=== PATIENT | male | born 1960 | race Caucasian/White ===

== ENCOUNTER 2016-09-01 18:30 | Inpatient (IN) | payer MEDICARE, MEDICAID ==
[~2016-09-01] VITALS: Ht 177.8 cm; Wt 90.4 kg
--- NOTE | ~2016-09-01 | CON ---
PATIENT'S NAME: VARSHA PERDUE [facility] AGE: 55 Y [address] ROOM: [place] [address] LOCATION: GPCU ADMIT DATE: 09/01/2016 Consultation DISCHARGE DATE: FAMILY PHYSICIAN: PHYSICIAN, UNKNOWN ATTENDING PHYSICIAN: Alena Busch CHIEF COMPLAINT: Syncopal episode. REASON FOR CONSULTATION: Medical management. HISTORY OF PRESENT ILLNESS: This is a 55-year-old gentleman with a history of developmental delay, history of hypertrophic obstructive cardiomyopathy, hypertension, and sleep apnea, experienced a syncopal episode today, in which he described he blacked out and his coworkers took him to the emergency department in [place] and was later transferred here for further medical care. On my encounter, he is alert and oriented, very pleasant gentleman. He denied any chest pain, any shortness of breath, any palpitations, any headache, any dizziness, any trouble with the eyes, any abdominal pain, or any extremity swelling at this point. He told me that he just could remember that he just blacked out and do not remember much. He denied hitting any head or having any headache at this point. Further history was taken from the chart as well as other medical staff. REVIEW OF SYSTEMS: All other systems reviewed and were negative except what is mentioned in the HPI. PAST MEDICAL HISTORY: 1. History of hypertrophic cardiomyopathy, obstructive. 2. Hypertension. 3. Obesity. 4. Obstructive sleep apnea. 5. Developmental delays. MEDICATIONS: Please see MAR. ALLERGIES: NO KNOWN DRUG ALLERGIES. SOCIAL HISTORY: Never a smoker, no drinking. Very active in life, having working for the last 27 years. PATIENT'S NAME: VARSHA PERDUE [facility] AGE: 55 Y [address] ROOM: [place] [address] LOCATION: GPCU ADMIT DATE: 09/01/2016 Consultation DISCHARGE DATE: FAMILY PHYSICIAN: PHYSICIAN, UNKNOWN ATTENDING PHYSICIAN: Alena Busch FAMILY HISTORY: Family history is negative for any premature coronary artery disease. PHYSICAL EXAMINATION: VITAL SIGNS: Blood pressure 136/76, 51, 16, afebrile. GENERAL: No acute distress. Alert and oriented x3. HEENT: Head: Atraumatic and normocephalic. Eyes are nonicteric. No pallor. Oropharynx: Moist mucous membranes. NECK: No JVD or thyromegaly. CARDIOVASCULAR: S1 and S2. Systolic ejection murmur at the apex radiating to the axilla, 3/6. LUNGS: Clear to auscultation bilaterally. ABDOMEN: Soft, nontender, and nondistended. Bowel sounds are present. Large surgical scar omar noted. EXTREMITIES: No clubbing, cyanosis, or edema. NEUROLOGIC: Cranial nerves 2 through 12 intact. No motor or sensory deficit noted. PSYCH: Normal mood, affect, and speech. LABORATORY WORK: An EKG done at the [facility] [place] showed sinus bradycardia without any acute ST-T wave changes. We are going to obtain a basic lab work including magnesium. ASSESSMENT AND PLAN: 1. Syncopal episode. 2. Hypertrophic obstructive cardiomyopathy. 3. Obstructive sleep apnea. 4. Paroxysmal atrial fibrillation, on oral anticoagulation with Coumadin. PLAN: We are going to admit this patient to the telemetry under Cardiology Service. We will monitor his rhythm on the tele monitor. We will monitor labs. Discontinuing the Coumadin to lower the INR. Given his syncopal episode with hypertrophic obstructive cardiomyopathy, he is a candidate for AICD by Cardiology. We will restart the home medications. CPAP for obstructive sleep apnea. Thank you for allowing us in taking care of this patient, and we will follow along. KWESI THOMPSON MD PATIENT'S NAME: VARSHA PERDUE [facility] AGE: 55 Y [address] ROOM: [id number] [place], [place] [address] [facility] ADMIT DATE: 09/01/2016 Consultation DISCHARGE DATE: FAMILY PHYSICIAN: PHYSICIAN, UNKNOWN ATTENDING PHYSICIAN: Alena Busch /[id number] d: 09/01/162111 t: 09/03/16619, CONSULTATION REPORT
--- NOTE | ~2016-09-01 | HP ---
PATIENT'S NAME: VARSHA KERNS [facility] AGE: 55 Y [address] ROOM: [address] [address] LOCATION: GPCU ADMIT DATE: 09/01/2016 History & Physical DISCHARGE DATE: FAMILY PHYSICIAN: PHYSICIAN, UNKNOWN ATTENDING PHYSICIAN: Alena Busch DATE OF SERVICE: CHIEF COMPLAINT: Passed out. HISTORY OF PRESENT ILLNESS: Mr. Kerns is a pleasant 55-year-old male who follows with Dr. Busch as an outpatient. The patient stated that today while [facility] was at [facility] in [place] he suddenly passed out. The patient stated that he was unconscious for a brief time and when he woke up he did not know where he was. Subsequently, he was taken to [facility] and transferred here for further management in consultation with Dr. Busch. The patient denied any previous history of syncope. He has been having shortness of breath on exertion for the last two weeks and has not been able to keep up with his peers. No history of chest pain. No history of palpitations. Per previous medical records, the patient has had an echo in the past which showed moderate septal hypertrophy measuring 1.6 cm with systolic anterior motion of mitral valve and moderate mitral regurgitation. Velocity across the LVOT was 5.6 m/sec with Valsalva consistent with gradient of 127 mmHg. Resting gradient across LVOT was 99 mmHg. The patient also has moderate pulmonary hypertension. REVIEW OF SYSTEMS: The patient denied any recent change in vision. No history of nausea, vomiting, diarrhea, or constipation. No history of fever. No history of cough or expectoration. No history of chest pain. Review of other systems is essentially negative. PAST MEDICAL HISTORY: History of hypertrophic obstructive cardiomyopathy, hypertension, hyperlipidemia. The patient also has a history of developmental delay; paroxysmal atrial fibrillation, on Coumadin and dronedarone; history of gout, on allopurinol; sleep apnea; history of gastroesophageal reflux disease; and history of perforated bowel with colon resection in December 2012. The patient also has previous history of chest pain and had cardiac catheterization in 2010, but the report is not available. SOCIAL HISTORY: The patient is single. Nonsmoker, nonalcoholic. PATIENT'S NAME: VARSHA KERNS [facility] AGE: 55 Y [address] ROOM: [place] [address] LOCATION: GPCU ADMIT DATE: 09/01/2016 History & Physical DISCHARGE DATE: FAMILY PHYSICIAN: PHYSICIAN, UNKNOWN ATTENDING PHYSICIAN: Alena Busch FAMILY HISTORY: No family history of hypertrophic cardiomyopathy. The patient stated that his father left him when he was young and he does not know much about his father. CURRENT MEDICATIONS: 1. Warfarin. 2. Omeprazole 20 mg daily. 3. Fish oil. 4. Tylenol. 5. Allopurinol 100 mg daily. 6. Amlodipine 5 mg daily. 7. Calcium carbonate. 8. Dronedarone 400 mg b.i.d. 9. Ezetimibe 10 mg daily. 10. Metoprolol succinate 100 mg daily. PHYSICAL EXAMINATION: GENERAL: He is awake, alert, and oriented and in no distress. VITAL SIGNS: His pulse rate is 50 per minute, blood pressure is 157/82, respiratory rate is 16. HEENT: His head is atraumatic and normocephalic. Tongue is moist. NECK: No significant jugular venous distention is present. CARDIOVASCULAR: S1, S2 are audible. They are regular in rate and rhythm. Grade 3/6 ejection systolic murmur is audible in the left parasternal area. RESPIRATORY: Bilateral vesicular breath sounds are audible with no adventitious sounds. ABDOMEN: Scar byrnes are present from previous colon surgery. Abdomen is soft and nontender. Bowel sounds are present. EXTREMITIES: Showed no significant pedal edema. NEUROLOGIC: The patient is awake, alert, and oriented. No focal neurological deficits noted. ASSESSMENT AND PLAN: 1. Hypertrophic obstructive cardiomyopathy. 2. Hypertension. 3. History of colonic perforation, status post surgery. 4. Sleep apnea. 5. Paroxysmal atrial fibrillation. 6. History of mental retardation. PLAN: We will admit the patient to telemetry, monitor heart rhythm on telemetry, fall precautions. Check electrolytes and magnesium level. Obtain 12-lead EKG. Continue antihypertensive medications including metoprolol and PATIENT'S NAME: VARSHA KERNS [facility] AGE: 55 Y [address] ROOM: [place] [address] LOCATION: GPCU ADMIT DATE: 09/01/2016 History & Physical DISCHARGE DATE: FAMILY PHYSICIAN: PHYSICIAN, UNKNOWN ATTENDING PHYSICIAN: Alena Busch amlodipine. Continue dronedarone for paroxysmal atrial fibrillation. Watch for any arrhythmias. In view of episode of syncope and history of hypertrophic obstructive cardiomyopathy, the patient will be a candidate for ICD placement. The plan of care was discussed with the patient and the hospitalist team. MD RUSLAN SALAZAR/oskar /[id number] D: [id number] T: [id number] HISTORY & PHYSICAL
--- NOTE | ~2016-09-01 | DS ---
PATIENT'S NAME: VARSHA PERDUE [facility] AGE: 55 Y [address] ROOM: [address] [address] LOCATION: GPCU ADMIT DATE: 09/01/2016 Discharge Summary DISCHARGE DATE: 09/08/2016 FAMILY PHYSICIAN: Physician, Unknown ATTENDING PHYSICIAN: Alena Busch DISCHARGE DIAGNOSES: 1. Idiopathic hypertrophic subaortic stenosis with left ventricular outflow tract gradient at rest without provocation is greater than 150 mmHg. 2. Moderate left ventricular hypertrophy, especially of the septum which measured 2.1 cm. 3. Syncope at this point that brings him to the hospital for the first time, and he became symptomatic. 4. History of hypertension. 5. Hyperlipidemia. 6. History of coronary artery disease. 7. Paroxysmal atrial fibrillation, on Coumadin therapy and dronedarone. 8. History of gout. 9. Sleep apnea. 10. Gastroesophageal reflux disease. 11. History of perforated bowels, operated in 2012. 12. He is mildly mentally challenged, but functions very well in the society. DISCHARGE MEDICATIONS: 1. Allopurinol 100 mg a day. 2. Atorvastatin 40 mg a day. 3. Multaq 400 mg a day. 4. Metoprolol 12.5 mg 3 times a day in addition to 6.25 mg, a total of 18.75 mg 3 times a day. 5. Fish oil 1 g 2 a day. 6. Omeprazole 20 mg a day. 7. Warfarin 2.5 mg 4 days a week and 5 mg 3 days a week. 8. Hydrocodone/acetaminophen every 4 hours as needed. 9. Loratadine p.r.n. 10. Calamine lotion, bismuth. 11. Pepto-Bismol p.r.n. 12. Robitussin p.r.n. 13. Triple Antibiotic ointment p.r.n. 14. Calcium carbonate p.r.n. 15. Acetaminophen. COURSE IN THE HOSPITAL: This is the first hospitalization for symptomatic IHSS. Clearly, he needs surgery at this time. The patient underwent cardiac catheterization and also consultation by Dr. Lundy. The patient is going to PATIENT'S NAME: VARSHA PERDUE [facility] AGE: 55 Y [address] ROOM: [address] [address] LOCATION: GPCU ADMIT DATE: 09/01/2016 Discharge Summary DISCHARGE DATE: 09/08/2016 FAMILY PHYSICIAN: Physician, Unknown ATTENDING PHYSICIAN: Alena Busch be discharged home because Dr. Lundy is going to be out of town. PT/INR is going to be managed as an outpatient by Dr. Avilez, whom I contacted. He will be seen in the [place] outreach clinic by myself to increase his Lopressor. On September 19, he will have an appointment with Dr. Lundy who will arrange for his myectomy. At the time of discharge, the patient was asymptomatic, and he is feeling well and is tolerating all his medications well as well. MD SRAVANI ATKINSON/oskar /[id number] d: 09/19/16 1826 t: 10/01/16 1605, DISCHARGE SUMMARY
--- NOTE | ~2016-09-01 | ECHO ---
Transthoracic Echocardiography Report (TTE) Demographics Patient Name VARSHA PERDUE Date of Study 09/02/2016 L Patient Number [id number] Visit Number [id number] Date of 1960 Room Number G6304 Gender Male Number Age 55 year(s) Referring Narayan Carvajal Area Safety Manager All Bach RVT Physician MD Allen Wang Physician Interpreting Allen Wang Pillowcase Sewer Physician Supervising Ordering Allen Wang MD/MLP Physician Nurse Stress Carton Waxing Machine Operator Conclusions Summary The estimated left ventricular ejection fraction is 65-70%. Asymmetric septal left ventricular hypertrophy. Systolic anterior motion of the anterior mitral valve leaflet. Resting LVOT velocity is 6.07 m/s, with a peak gradient of 156 mmHg, and mean gradient of 50 mmHg suggestive of left ventricular outflow tract obstruction at rest. The aortic valve is mildly sclerotic. Mild mitral annular calcification. Mild mitral regurgitation by color Doppler. Trivial tricuspid regurgitation by color Doppler. There is mild pulmonary hypertension. The estimated pulmonary pressure (RVSP) is 39 mmHg. Procedure Type of Study TTE procedure:2D Echocardiogram, M-Mode, Doppler , Color Doppler. Procedure Date Date: 09/02/2016 Start: 09:58 AM Study Location: Inpatient Portable Technical Quality: Adequate visualization Indications:Syncope and Cardiomyopathy, hypertrophic. Appropriate Use Criteria: 9 Patient Status: Routine HR: 41 bpm M-Mode/2D Measurements LV Diastolic Dimension: 4.62 cm LV Systolic Dimension: 2.58 cm LV Septum Diastolic: 2.1 cm LV PW Diastolic: 1.69 cm AO Root Dimension: 2.8 cm Cardiac Output: 18.17 l/min AV Cusp Separation: 2.1 cm RV Diastolic Dimension: 3.12 cm LVOT: 2.1 cm LVOT VTI: 128 cm RV Base: 2.79 cm LV Stroke volume: 443.12 ml RV Length: 6.38 cm TAPSE: 2.62 cm TDI-S': 14.8 cm/s Doppler Measurements AV Peak Velocity: 2 m/s MV Peak E-Wave: 1.12 m/s AV Peak Gradient: 16 mmHg MV Peak A-Wave: 0.84 m/s AV Mean Gradient: 13 mmHg MV E/A Ratio: 1.33 LVOT Peak Velocity: 6.07 m/s MV P1/2t: 89 msec TR Gradient:35.76 mmHg PV Peak Velocity: 0.93 m/s Estimated RAP:10 mmHg PV Peak Gradient: 3.43 mmHg Estimated RVSP: 46 mmHg Estimated PASP: 45.76 mmHg E' Septal Velocity: 0.03 m/s A' Septal Velocity: 0.07 m/s E' Lateral Velocity: 0.12 m/s A' Lateral Velocity: 0.07 m/s Findings Left Ventricle Asymmetric septal left ventricular hypertrophy. Diastolic assessment reveals normal relaxation. Right Ventricle Normal right ventricle structure and function. Left Atrium The left atrium is moderately dilated. Right Atrium IVC measures 1.66 cm with inspiratory collapse. Mitral Valve Mild mitral annular calcification. Mild mitral regurgitation by color Doppler. Systolic anterior motion of the anterior mitral valve leaflet. Aortic Valve The aortic valve is mildly sclerotic. Resting LVOT velocity is 6.07 m/s, with a peak gradient of 156 mmHg, and mean gradient of 50 mmHg suggestive of left ventricular outflow tract obstruction at rest. Tricuspid Valve Trivial tricuspid regurgitation by color Doppler. There is moderate pulmonary hypertension. The pulmonary pressure (RVSP) is 46 mmHg. Pulmonic Valve Trivial pulmonic valve regurgitation by color Doppler. Pericardial Effusion No evidence of pericardial effusion. Miscellaneous Visualized portions of the aortic root and ascending aorta appear normal in size. Pleural Effusion No evidence of pleural effusion. Contractility Score LV regional wall motion:(0-Non visualized 1-Normal 2-Hypokinesis 3-Akinesis 4-Dyskinesis 5-Aneurysm) Signature dtt: NED WRIGHT dtd: 09/02/16 0958 Physician Self Edit
--- NOTE | ~2016-09-01 | CATH ---
Cardiac Diagnostic Report Demographics Patient Name IRON MADDOX Gender Male L Date of 1960 Age 55 year(s) Patient Number [id number] Date of Study 09/04/2016 Visit Number [id number] Room Number G6[address] [place] [id number] Ht 172.72 cm Wt 90.6 kg Referring Narayan Primary Physician Physician Alena VARELA Performing Narayan Secondary Physician Physician Alena VARELA Diagnostic Narayan Assisting Physician Physician Alena VARELA Interventional Physician Test Rack Operator Physician Findings and Conclusions Diagnostic Findings and Conclusion Proximal to LVOT obstruction; LVEDP = 6. AO 112/74; LV 311/0. LVOT gradient 197 mmHg. Proximal to LV outflow 115/0. No gradient across aortic valve. Severe LVOT obstruction (197 mmHg). Normal LV EF. Mild CAD. Diagnostic Recommendations Consult cardiothoracic surgeon. Procedure Description The patient was brought to the diagnostic cardiac catheterization-EP laboratory in the fasting, non-sedated state. Informed consent was obtained in the written and verbal form after the risks and benefits were explained. The patient had no further questions and agreed to proceed. The planned puncture-incision site(s) were shaved and prepped with ChloraPrep and draped in the usual sterile manner. Conscious sedation and pain control medications were delivered by a registered nurse under physician guidance. Surface ECG rhythm, blood pressure measurement, and pulse oximetry were monitored throughout the procedure. Arterial access. The access site was infiltrated with lidocaine. The vessel was entered with the Seldinger technique. A sheath was advanced into the vessel and used for catheter placement. Selective left coronary angiography. A catheter was advanced into the left coronary vessel ostium under Fluoroscopic guidance. Contrast was injected by hand. Images were obtained in multiple projections. Selective right coronary angiography. A catheter was advanced into the right coronary vessel ostium under fluoroscopic guidance. Contrast was injected by hand. Images were obtained in multiple projections. Left heart catheterization with ventriculography. A catheter was advanced across the aortic valve to the left ventricle under fluoroscopic guidance. Resting hemodynamics were obtained. With the catheter at the left ventricular apex, contrast was injected. Images were obtained in AMERICAN projections. Post-ventriculography LV pressure was obtained. The catheter was gradually withdrawn into the aorta with continuous pressure recording. Arterial artery hemostasis was achieved. The patient was transferred to PCU via cart accompanied by a nurse. The patient left the laboratory in stable condition. Diagnostic Cath Status: Urgent Procedure Procedure Type Diagnostic procedure:Ventriculogram:, Left, Angiography:, Coronary Angios /[facility] Indications: Chest pain and Syncope. The procedure was explained in detail to the patient. Risks, complications and alternative treatments were reviewed. Written consent was obtained. Medications Reviewed with Patient prior to Procedure. Angiographic Findings Dominance: Right Cardiac Arteries and Lesion Findings LMCA: Luminal irregularities. LAD: Mid LAD 30% tubular stenosis, type III lesion. Diag 2.5 mm. Lesion on Mid LAD: Mid subsection.30% stenosis .The lesion was diagnosed as a high risk lesion.The lesion was tubular. LCx: Mild diffuse disease. OM 2 and OM 4 are medium sized. RCA: Dominant. Anteriorly arising. Mild proximal disease. Coronary Tree Procedure Data Procedure Date Date: 09/04/2016Start: 05:20 PMEnd: 06:15 PM Entry Locations - Percutaneous access was performed through the Right Femoral artery (Primary location). A 6 Fr sheath was inserted. Hemostasis was successfully obtained using Angio-Seal STS PLUS ([facility] [facility]). Closure Comments: Deployed by Reese Ames.. - Antegrade Percutaneous access was performed through the Left Femoral artery. A 6 Fr sheath was inserted. Hemostasis was successfully obtained using Angio-Seal STS PLUS ([facility]). Closure Comments: Deployed by Reese Morales. Procedure Medications Order and Administration + + +-------+------+ !Time !Medication !Dosage !Route ! + + +-------+------+ !09/04/2016 05:18 PM !Versed !1 mg !I.V. ! + + +-------+------+ !09/04/2016 05:21 PM !Fentanyl !25 mcg !I.V. ! + + +-------+------+ Devices Used - A6 Fr. BS Angled Pigtail Diag. Catheterwas used for:Aortic Root. Comments: simultaneous pressures taken in aortoa and LV. - A6 Fr. MPA2 Diag. Catheterwas used for:LV Pressures. - A6 Fr. BS JL 4 Diag. Catheterwas used for:Left coronary angiography. - A6 Fr. BS JR 4 Diag. Catheterwas used for:Right coronary angiography.Unable to cannulate the vessel. - A6 Fr. BS AR Mod Diag. Catheterwas used for:Right coronary angiography.Unable to cannulate the vessel. - A6 Fr. BS AL1 Diag. Catheterwas used for:Right coronary angiography. Contrast Material - Isovue [id number] ml Fluoroscopy Time: Diagnostic: 11:18 minutes. Total: 11:18 minutes. Fluoroscopy Dose: Diagnostic: 1608 mGy. Total: 1608 mGy. Estimated Blood Loss: 15 ml. Medical History Allergies - No known allergies. Risk Factors The patient risk factors include:hypercholesterolemia, treated hypertension, last creatinine: 1.2 mg/dl, creatinine clearance: 88.08 ml/min and dyslipidemia. Admission Data Admission Date: 09/01/2016 Admission Time: 07:05 PM Admit Source: [facility] care facility Insurance Payors: Medicare. Admission Medications + +------+------+ + + + + !Medication !Dosage!Times !Last !Last !Administered !Comments ! ! ! !Per !Delivery !Delivery ! ! ! ! ! !Day !Date !Time ! ! ! + +------+------+ + + + + !Warfarin ! ! ! ! ! ! ! + +------+------+ + + + + !Beta ! ! ! ! !Yes ! ! !Mark ! ! ! ! ! ! ! !(any) ! ! ! ! ! ! ! + +------+------+ + + + + Clinical Evaluation Leading to Procedure - The patient's CAD presentation was assessed as: Unstable angina. - The patient's anginal syndrome during the past two weeks was assessed as: Class IV according to the [place] Cardiovascular Society Classification System (CCS). Anti-anginal medications were prescribed during the past two weeks. The medications are: Beta Blockers and Ca channel Blockers. [facility] Ventriculography Findings No regional wall motion abnormality. EF >= 60%. LV function assessed as:Normal. Ejection Fraction - 09/04/2016 - Method: LV gram. EF%: 60. Hemodynamics Condition: Rest O2 Consumption: Estimated: 234.91Heart Rate: 62 bpm Pressures (mmHg) +-----+ + !Site !Pressure ! +-----+ + !AO !114/ (90) ! +-----+ + !LV !311/0 ,6 ! +-----+ + !AO !105/70 (87) ! +-----+ + !LV !241/-6 ,7 ! +-----+ + !AO !114/71 (89) ! +-----+ + !LV !278/0 ,7 ! +-----+ + !AO !) ! +-----+ + !LV !278/-1 ,5 ! +-----+ + !AO !) ! +-----+ + !LV !279/0 ,7 ! +-----+ + !AO !) ! +-----+ + !LV !268/-5 ,10 ! +-----+ + !AO !108/67 (84) ! +-----+ + !LV !265/-5 ,7 ! +-----+ + !AO !114/71 (90) ! +-----+ + !LV !267/-4 ,8 ! +-----+ + !AO !96/78 (87) ! +-----+ + !LV !193/0 ,7 ! +-----+ + !AO !117/69 (92) ! +-----+ + !LV !201/-3 ,3 ! +-----+ + !AO !113/68 (85) ! +-----+ + !LV !191/-2 ,5 ! +-----+ + !AO !116/70 (89) ! +-----+ + !LV !135/-4 ,3 ! +-----+ + !AO !119/72 (92) ! +-----+ + !LV !125/-4 ,2 ! +-----+ + !AO !120/73 (93) ! +-----+ + !LV !125/-3 ,3 ! +-----+ + !AO !118/72 (91) ! +-----+ + !LV !119/-2 ,4 ! +-----+ + !AO !117/71 (89) ! +-----+ + !LV !117/64 ,52 ! +-----+ + !AO !116/71 (89) ! +-----+ + !AO !111/71 (88) ! +-----+ + !LV !115/0 ,6 ! +-----+ + !LV !111/0 ,6 ! +-----+ + !AO !115/71 (90) ! +-----+ + !LV !110/-3 ,5 ! +-----+ + !AO !112/ (90) ! +-----+ + Valve Gradients and Areas + +---------+---------+---------+ +---------+ + !Valve !Peak !Mean !Area !Index !Flow !Source ! + +---------+---------+---------+ +---------+ + !Aortic !0 !0 ! ! ! ! ! + +---------+---------+---------+ +---------+ + !Aortic !0 !0 ! ! ! ! ! + +---------+---------+---------+ +---------+ + Shunts Oxygen Values O2 Capacity 201.28 O2 Consumption 234.91 Discharge Data Discharge Date: 09/08/2016 Hospital Status: Inpatient Signatures dtt: Alena Busch dtd: 09/04/16 3540 Physician Self Edit
--- NOTE | 2016-09-01 19:00 | NUR ---
D: PT ARRIVED PER STRETCHER VIA [facility]. NO C/O CHEST PAIN ON ARRIVAL. MONITOR SHOWS SINUS HAYDE WITH RATES 40-50'S, DENIES ANY C/O DIZZINESS OR LIGHTHEADEDNESS. PERIPHERAL IV TO L) HAND INTACT. I: PLEASE REFER TO DATA BASE FOR HISTORY. DR. TREVIÑO NOTIFIED OF PATIENT ARRIVAL. DR. WRIGHT NOTIFIED OF PATIENT ARRIVAL. DR. JANSEN NOTIFIED OF PATIENT ARRIVAL. I: DR. WRIGHT HERE TO SEE PATIENT AND ORDERS WRITTEN. DR. THOMPSON HERE TO SEE PATIENT AND ORDERS WRITTEN. P: MONITOR OVERNIGHT. DR. PENNINGTON TO SEE IN A.M. POSSIBLE AICD INSERTION ON SUNDAY.
[2016-09-01] MEDS ORDERED: MULTAQ400 MG PO (19:24)
[2016-09-01] MEDS ORDERED: ZYLOPRIM100 MG PO (19:25)
[2016-09-01] MEDS ORDERED: COUMADIN **IA2.5 MG PO ×2 (19:25)
[2016-09-01] MEDS ORDERED: NORVASC5 MG PO (19:26)
[2016-09-01] MEDS ORDERED: PRILOSEC20 MG PO (19:26)
[2016-09-01] MEDS ORDERED: TOPROL XL100 MG PO (19:26)
[2016-09-01] MEDS ORDERED: HYDROCODON-ACE1 EAC4 PO (19:27)
[2016-09-01] MEDS ORDERED: ZETIA10 MG PO (19:27)
[2016-09-01] MEDS ORDERED: CALAMINE TOP (19:28)
[2016-09-01] MEDS ORDERED: COLACE100 MG PO (19:28)
[2016-09-01] MEDS ORDERED: FISH OIL 500 M1 EAC1 PO (19:28)
[2016-09-01] MEDS ORDERED: PEPTO BISMOL LIQ1 ML PO (19:29)
[2016-09-01] MEDS ORDERED: CLARITIN10 MG PO (19:29)
[2016-09-01] MEDS ORDERED: ROBITUSSIN DM120 ML PO (19:30)
[2016-09-01] MEDS ORDERED: TRIPLE ANTIBIO1 EACH TOP (19:30)
[2016-09-01] MEDS ORDERED: TUMS REGULAR ST1 TAB PO (19:31)
[2016-09-01] MEDS ORDERED: TYLENOL325 MG PO (19:31)
[2016-09-01 20:46] LABS: BASOPHIL % 0.5 %; EOSINOPHIL # 0.3 K/uL (0.0-0.5); EOSINOPHIL % 3.9 %; HEMATOCRIT 43.1 % (37.0-53.0); HEMOGLOBIN 15.2 g/dL (12.0-17.0); IMMATURE GRANULOCYTE % 0.2 %; LYMPHOCYTE # 2.5 K/uL (0.8-4.0); LYMPHOCYTE % 39.5 %; MCH 30.6 pg (27.0-34.0); MCHC 35.3 gm/dL (32.0-36.5); MCV 86.7 fl (83.0-98.0); MONOCYTE # 0.7 K/uL (0.0-1.0); MONOCYTE % 10.4 %; MPV 10.3 fl (9.4-12.4); NEUTROPHIL # (ANC) 2.9 K/uL (1.4-9.0); NEUTROPHIL % 45.5 %; NRBC % 0 /100WBC (0-0.00); PLATELET COUNT 206 K/uL (150-450); RBC 4.97 M/uL (4.00-6.00); RDW-CV 12.6 % (11.9-14.6); WBC 6.4 K/uL (4.0-11.0)
[2016-09-01 20:56] LABS: INR - (THERAPEUTIC) 1.8 (0.9-1.1); PROTIME 19.7 SECONDS (9.6-11.1)
[2016-09-01 21:03] LABS: ALBUMIN 3.6 gm/dL (3.5-5.0); ALK PHOS 79 IU/L (33-138); ALT 20 IU/L (12-78); ANION GAP 10.7 (10.0-19.0); AST 25 IU/L (10-40); BLOOD UREA NITROGEN 11 mg/dL (6-24); CALCIUM 8.4 mg/dL (8.5-10.5); CHLORIDE 111 mMol/L (96-110); CO2 27 mMol/L (22-32); CREATININE 1.2 mg/dL (0.6-1.3); ESTIMATED GFR (MDRD EQUATION) > 60; MAGNESIUM 2.2 mg/dL (1.3-2.6); POTASSIUM 3.7 mMol/L (3.7-5.1); SODIUM 145 mMol/L (135-145); TOTAL BILIRUBIN 0.5 mg/dL (0.0-1.5); TOTAL PROTEIN 7.2 g/dL (6.0-8.4)
[2016-09-02 03:39] LABS: BASOPHIL % 0.7 %; EOSINOPHIL # 0.2 K/uL (0.0-0.5); EOSINOPHIL % 4.5 %; HEMATOCRIT 41.6 % (37.0-53.0); HEMOGLOBIN 14.8 g/dL (12.0-17.0); IMMATURE GRANULOCYTE % 0.2 %; LYMPHOCYTE # 2.3 K/uL (0.8-4.0); LYMPHOCYTE % 43.3 %; MCH 30.9 pg (27.0-34.0); MCHC 35.6 gm/dL (32.0-36.5); MCV 86.8 fl (83.0-98.0); MONOCYTE # 0.6 K/uL (0.0-1.0); MPV 10.5 fl (9.4-12.4); NEUTROPHIL # (ANC) 2.1 K/uL (1.4-9.0); NEUTROPHIL % 39.3 %; NRBC % 0 /100WBC (0-0.00); PLATELET COUNT 197 K/uL (150-450); RBC 4.79 M/uL (4.00-6.00); RDW-CV 12.6 % (11.9-14.6); WBC 5.3 K/uL (4.0-11.0)
[2016-09-02 04:00] LABS: INR - (THERAPEUTIC) 2.1 (0.9-1.1)
[2016-09-02 04:11] LABS: ANION GAP 12.6 (10.0-19.0); BLOOD UREA NITROGEN 8 mg/dL (6-24); CALCIUM 8.1 mg/dL (8.5-10.5); CHLORIDE 109 mMol/L (96-110); CO2 24 mMol/L (22-32); CREATININE 1.1 mg/dL (0.6-1.3); ESTIMATED GFR (MDRD EQUATION) > 60; MAGNESIUM 2.1 mg/dL (1.3-2.6); POTASSIUM 3.6 mMol/L (3.7-5.1); SODIUM 142 mMol/L (135-145)
--- NOTE | 2016-09-02 04:59 | NUR ---
Significant Event: PT ARRIVED TO UNIT AT 1900. DR. WRIGHT AND DR. THOMPSON HERE TO ADMIT PT. PT ADMITTED FOR C/O SYNCOPY. PT HAS DENIED C/O CHEST PAIN/PRESSURE OR DIZZINESS OR LIGHTHEADEDNESS. DENIES C/O SHORTNESS OF BREATH. NOTED TO OCCASSIONALLY NEED TO TAKE A DEEP BREATH, BUT CONT. TO DENY C/O BREATHING DIFFICULTY. IV SALINE LOCKED TO L) HAND. NOTED TO HAVE HR OF 40-50 WHILE AWAKE. WILL DECREASE TO UPPER 30'S WITH SLEEP. PT CONT. TO DENY ANY COMPLAINTS. PT DOES USE A C-PAP AT HOME. REFUSED TO USE GSH MACHINE AND MASK. HE HAS ASKED FAMILY/FRIENDS TO BRING HIS FROM HOME, HE USES NASAL PILLOWS AT HOME. POTASSIUM 3.7, REPLACED WITH 20 MEQ PO AND WILL NEED AN ADDITIONAL DOSE THIS AM. ORDERS ON BETA INOCENCIO CHANGED, FROM HOME DOSE. Follow up: PER NOTES PLAN FOR AICD NEXT WEEK WITH DR. PENNINGTON. COUMADIN ON HOLD. INR WAS 1.8
--- NOTE | 2016-09-02 17:28 | NUR ---
Significant Event:Patient has rested in bed. No c/o chest pain. HR remians in the 40's. Lopressor held this morning. Did get 40 mEq of KCL this morning, will get a gain this evening. Had echo today. Had 6 beats of V-Tach this am, no symptoms. Dr. Villa aware. Follow up:AICD on Sunday
[2016-09-03 03:59] LABS: ANION GAP 12.2 (10.0-19.0); BLOOD UREA NITROGEN 11 mg/dL (6-24); CALCIUM 8.2 mg/dL (8.5-10.5); CHLORIDE 106 mMol/L (96-110); CO2 24 mMol/L (22-32); CREATININE 1.2 mg/dL (0.6-1.3); ESTIMATED GFR (MDRD EQUATION) > 60; POTASSIUM 4.2 mMol/L (3.7-5.1); SODIUM 138 mMol/L (135-145)
--- NOTE | 2016-09-03 04:56 | NUR ---
Significant Event: SBP 130-1 teens. HR 40's while awake and high 30's-low 40's while sleeping. Patient continues to be asymptomatic. RA. No c/o pain or shortness of breah. Up to bathroom with SBA. Plan for AICD tomorrow. Follow up: Continue to monitor.
--- NOTE | 2016-09-03 18:37 | NUR ---
Significant Event:Patient has rested today, up to bathroom with one assist. Remains on Nitro at 5 mcg/min. Had one dose Norvasc 2.5 mg. Family at bedside throughout shift. Will have Lexiscan in am. Had echo today. Follow up:
--- NOTE | 2016-09-04 05:08 | NUR ---
Significant Event: A/O X3. SBP 140's-1 teens. HR's 60's while awake and low 40's-low 50's while sleeping. Bedtime dose of lopressor held due to parameters for HR. RA. Afebrile. Up with SBP. No c/o pain. Plan for Dr Lopez to see today and for possible AICD placement. Patient has been NPO since midnight and surgical check list started. Rested well tonight. Follow up: Continue to monitor. ? AICD placement today.
--- NOTE | 2016-09-04 12:12 | NUR ---
Introduced self and role of care management to patient. He lives with a room-mate in [place]. He states that he is able to do all his own ADL's. He has family and friends that assist if needed. He plans on returning home on discharge. He denies any needs at this time. Will continue to follow.
--- NOTE | 2016-09-04 15:50 | NUR ---
Significant Event: A/O X 3. PATIENT DENIES PAIN. UP AD HEMA IN ROOM. AFEBRILE. HR SR IN 50-60'S. HELD LOPRESSOR MED. SBP 131-153. HEART MURMUR PROMINENT. 02 SAT 96% ON ROOM AIR. NO RESP. DISTRESS NOTED. Follow up: NPO FOR HEART CATH THIS AFTERNOON.
--- NOTE | 2016-09-05 04:53 | NUR ---
Significant Event:A/Ox3. VSS. RT placed on 2L/NC while sleeping. No c/o pain. Bedrest completed at 2230 patient ambulated in room x1. Bilateral groins soft L)groin has dime sized drainage noted to gauze, marked with no changes. CSM wnl. PIV to L)hand accidental discontinued per patient new PIV to L)anterior FA infusing NS @ 50ml/h. Follow up:?AICD placement ?Discharge to home
--- NOTE | 2016-09-05 15:55 | NUR ---
Significant Event: IVF off. Pt up bathroom self. in this afternoon makes med changes and adds coumadin. WHen pt goes home, we need call [facility] at [phone] to come and get pt. No c/o pain. Groins still same ok. Follow up:
[2016-09-06 03:31] LABS: INR - (THERAPEUTIC) 1.2 (0.9-1.1); PROTIME 12.7 SECONDS (9.6-11.1)
--- NOTE | 2016-09-06 04:27 | NUR ---
Significant Event:Patient A/Ox3. VSS on RA. Up ad wali in the room during the day. Bilateral groins soft, no changes to dressings. CSM wnl. PIV to L)FA precious locked. No c/o pain. INR 1.2 today (09/06). Follow up:Patient to come back to [facility] after next wk for septal myectomy with . Possible discharge /Sunday.
--- NOTE | 2016-09-06 11:56 | NUR ---
A - PT SCREENED D/T LOS. HT: 70" WT: 199# BMI: 28.5 LABS: GLU 115 MEDS: PROTONIX, BOWEL DIET: CARDIAC. INTAKE: 75-100% NEEDS: 4730-9231 KCAL (20-25 KCAL/KG), 72-90 G PRO (0.8-1 G/KG), 2700 ML FLUID (30 ML/KG) D - NO NUTRITION RELATED DIAGNOSIS IDENTIFIED AT THIS TIME. I - GOAL FOR INTAKE TO REMAIN 75-100% FOR DURATION OF STAY. M/E - WILL ASSIST NEEDED.
--- NOTE | 2016-09-06 15:29 | NUR ---
Significant Event: AOx3, no c/o pain. Forgetful at times. Bradycardic into mid-40s at times, assymptomatic. VS otherwise WNL on room air. Lungs clear throughout. Metoprolol held this afternoon for heart rate. Dressings to bilat groin sites intact, old shadow drainage marked on left. SL flushes well. Up ad wali and tolerates well. Very pleasant and cooperative. Follow up: Likely dismissal or Sunday; plan is to return after 10 days or so for surgery with Dr Lundy.
[2016-09-07 04:25] LABS: INR - (THERAPEUTIC) 1.3 (0.9-1.1); PROTIME 14.4 SECONDS (9.6-11.1)
--- NOTE | 2016-09-07 05:25 | NUR ---
Significant Event: Patient alert/oriented x3. Vital signs stable, on room air. Denies any pain. Bradycardic this AM with HR's as low as 35; did have 18.25 mg of metoprolol last night, it was not held due to his HR's being in the 50's and parameters stated to hold only if HR < or = to 40. Patient did not sustain with bradycardia in 30's, has been mainly in the 40's while asleep. Up ad wali in the room. Coumadin restarted yesterday, INR is 1.3 this AM. Follow up: Possible dismissal today? Needs to come back in about 10 days for surgery [address] Dr[address] Lundy.
--- NOTE | 2016-09-07 15:18 | NUR ---
Significant Event: pt up in room self. NO c/o . Dressings removed from groins, left has sl.bruise. INR 1.3. [facility] will come get pt tomorrow at 1515. Follow up:
--- NOTE | 2016-09-08 05:00 | NUR ---
Significant Event: Patient is alert/oriented x3. Vital signs stable. Continues on room air. Denies any pain. No changes throughout the night. Follow up: D/C to home today around 1500. Will come back within about 10 days to have surgery with Dr. Lundy.
[2016-09-08 05:48] LABS: INR - (THERAPEUTIC) 1.7 (0.9-1.1); PROTIME 18.7 SECONDS (9.6-11.1)
[2016-09-08] MEDS ORDERED: LOPRESSOR25 MG PO ×2 (10:51→10:54)
[2016-09-08] MEDS ORDERED: LIPITOR40 MG PO (10:58)
--- NOTE | 2016-09-08 15:48 | NUR ---
Discharge Summary: Patient A/O x 3. Up independently. VSS on RA. HR 40-50's. SBP 144/77. O2 saturation 95%. RR 18. Temp 97.9 F. Denies pain. Discharge instructions included: new medications, medication changes, signs/symptoms to be alert for, cholesterol/low fat diet, activity restrictions, and follow-up appointments. Patient and fdc respresentative verbalize understanding of all instructions, and state they have no further questions at this time. IV and monitor discontinued. Patient left PCU at approximately 1545 to [facility] entrance and then home to self care with skilled nursing respresentative. Tl VALLECILLO 09/08/16
[2017-01-04] MEDS ORDERED: LIPITOR40 MG PO (16:49)
[2017-01-04] MEDS ORDERED: CLARITIN10 MG PO (16:50)
[2017-01-04] MEDS ORDERED: LOPRESSOR25 MG PO (16:50)
[2017-01-04] MEDS ORDERED: NORVASC5 MG PO (16:51)
== END 2016-09-08 15:45 | disposition disaster alternative care site (69) | DRG 287 ==
LOC: GPCU 19:05
PROVIDERS: Internal Medicine; Internal Medicine Interventional Cardiology; ADMIT Internal Medicine Interventional Cardiology
PROC: 4A023N7 Measurement of Cardiac Sampling and Pressure, Left Heart, Percutaneous Approach (ICD-10-PCS; principal; 2016-09-04)
PROC: B2151ZZ Fluoroscopy of Left Heart using Low Osmolar Contrast (ICD-10-PCS; principal; 2016-09-04)
PROC: B2111ZZ Fluoroscopy of Multiple Coronary Arteries using Low Osmolar Contrast (ICD-10-PCS; principal; 2016-09-04)
DX: I42.1 Obstructive hypertrophic cardiomyopathy (principal); I27.2 Other secondary pulmonary hypertension; R00.1 Bradycardia, unspecified; R55 Syncope and collapse; I10 Essential (primary) hypertension; I48.0 Paroxysmal atrial fibrillation; E78.5 Hyperlipidemia, unspecified; Z79.01 Long term (current) use of anticoagulants; M10.9 Gout, unspecified; K21.9 Gastro-esophageal reflux disease without esophagitis; F89 Unspecified disorder of psychological development; G47.33 Obstructive sleep apnea (adult) (pediatric); I25.10 Atherosclerotic heart disease of native coronary artery without angina pectoris; Z23 Encounter for immunization; E66.9 Obesity, unspecified; Z68.28 Body mass index [BMI] 28.0-28.9, adult
CPT/HCPCS: C1760; J1644; J2250; J3010; J7030

== ENCOUNTER 2016-09-22 12:15 | Inpatient (IN) | payer MEDICARE, MEDICAID ==
[~2016-09-22] VITALS: Ht 168.9 cm; Wt 86.8 kg
--- NOTE | ~2016-09-22 | DS ---
PATIENT'S NAME: VARSHA PERDUE [facility] AGE: 55 Y [address] ROOM: [address] [place], [place] [address] LOCATION: GPCU ADMIT DATE: 09/25/2016 Discharge Summary DISCHARGE DATE: 10/02/2016 FAMILY PHYSICIAN: Harish Novak MD ATTENDING PHYSICIAN: Hector Lundy HOSPITAL COURSE: The patient is a 55-year-old white male with a known history of obstructive hypertrophic cardiomyopathy. He had a previous hospitalization whereby he was evaluated by Dr. Busch and was found to have an extremely high gradient across the left ventricular outflow tract, greater than 95, and in addition had multiple syncopal episodes. He has been recommended for a septal myectomy. On 09/26/2016, the patient presented to [facility] for an elective septal myectomy with Dr. Lundy after being seen in consultation. The patient's procedure was without complication and he transferred to the ICU following the procedure. He intubated without difficulty on the same operative day. On postoperative day 1, the patient's Coumadin was restarted. The patient does have a history of atrial fibrillation. His beta blockers were also re-initiated. His lines and drips were discontinued and he transferred to the progressive care floor. While on progressive care, he worked with cardiac rehab for strengthening purposes. The patient's beta blockers were increased secondary to threatening AFib. Then, decreased due to a low heart rate. He then did go into atrial fibrillation. When his amiodarone drip was discontinued, he had been started back on his Multaq. This was discontinued and he was restarted on an amiodarone drip. Also, Cardizem was given. The patient was followed by Dr. Busch as well as Dr. Davis for Cardiology Services. Plans were for the patient to go for a cardioversion if his atrial fibrillation persisted. The patient's chest tubes, pacemaking wires, and Maldonado catheter were discontinued in the routine postoperative timeframe. He had no healing complications. A cardioversion was planned; however, the patient did convert back to normal sinus rhythm. The amiodarone was changed to p.o. and increased to 400 mg t.i.d. He was therapeutic on his Coumadin. The patient was found stable to discharge back to home, which is [facility]. DISCHARGE ORDERS: Include a diet with no restrictions. Activity levels which require no pulling, pushing, or lifting anything heavier than 10 pounds with the bilateral upper extremities until November 06, 2016. The patient may shower. He will begin cardiac rehab after being seen in the office. He will see Dr. Busch in 2 weeks as well as Dr. Lundy in 2 weeks on the same day. We will have him wear a Zio patch, which will be placed in Dr. Busch's office upon discharge from the hospital. They may mail that in after wearing it for a week and Dr. Busch will contact them with the findings. DISCHARGE DIAGNOSES: Include obstructive hypertrophic cardiomyopathy, PATIENT'S NAME: VARSHA PERDUE [facility] AGE: 55 Y [address] ROOM: [place] [address] LOCATION: GPCU ADMIT DATE: 09/25/2016 Discharge Summary DISCHARGE DATE: 10/02/2016 FAMILY PHYSICIAN: Harish Novak MD ATTENDING PHYSICIAN: Hector Lundy paroxysmal atrial fibrillation, hypertension, gastroesophageal reflux disease, high risk medications, and also developmental delay. DISCHARGE MEDICATIONS: Include, 1. Coumadin 2.5 mg on Sunday, , Sunday, and Sunday; and Coumadin 5 mg on Sunday, Sunday, and Sunday. 2. Allopurinol 100 mg daily. 3. Omeprazole 20 mg daily. 4. [place] 5/325, 1 to 2 every 4 to 6 hours as needed. 5. Colace 100 mg twice a day. 6. Fish oil 2000 mg daily. 7. Claritin 10 mg daily. 8. Tums 2 tablets p.r.n. upset stomach. 9. Tylenol 650 mg q.6 hours p.r.n. 10. Lipitor 40 mg daily. 11. Aspirin 81 mg daily. 12. Lopressor 25 mg twice a day. 13. Potassium chloride 10 mEq 2 tabs twice a day. 14. Amiodarone 400 mg twice a day. 15. Bumex 1 mg 2 tablets q.a.m. The patient verbalizes understanding of the discharge orders. The patient discharged to home in stable condition. COSME ANSARI APRN FOR DO MICHEL DOUGLASQ/modl /[id number] d: 10/19/16 0602 t: 10/20/16 1237, DISCHARGE SUMMARY
--- NOTE | ~2016-09-22 | OR ---
PATIENT'S NAME: VARSHA [facility] AGE: 55 Y [address] ROOM: [place] [address] LOCATION: GICU ADMIT DATE: 09/25/2016 OR/Procedure Report DISCHARGE DATE: FAMILY PHYSICIAN: Harish Novak MD ATTENDING PHYSICIAN: Hector Lundy SURGEON: Justine Redmond MD [employer] MEMBER: None. DATE OF PROCEDURE: 09/25/2016 PROCEDURE: Intraoperative transesophageal echocardiogram. INDICATIONS FOR PROCEDURE: Need for visualization of cardiac structures and function both prior to and post septal myomectomy. PREOPERATIVE DIAGNOSES: 1. Obstructive cardiomyopathy. 2. Hyperlipidemia. 3. Obstructive sleep apnea. 4. Moderate mitral regurgitation. POSTOPERATIVE DIAGNOSES: 1. Obstructive cardiomyopathy. 2. Hyperlipidemia. 3. Obstructive sleep apnea. 4. Moderate mitral regurgitation. COMPLICATIONS: None noted. ESTIMATED BLOOD LOSS: None. CONSENT: Informed consent was obtained preoperatively including discussion of risks, benefits, and alternatives. Mr. Kerns stated his understanding of the above procedures with risks, benefits, and alternatives and agreed for me to proceed. PROCEDURE IN DETAIL: After induction of anesthesia, the patient was placed in supine position. Orogastric tube was placed in the patient's mouth, posterior pharynx, esophagus, and stomach without difficulty, suctioned and removed. An iE33 Christopher transesophageal echocardiogram probe was placed through the patient's mouth, posterior oropharynx, esophagus, and stomach without difficulty. Please see saved images for further analysis. Prebypass views do illustrate left ventricular ejection fraction of approximately 63%. No regional wall motion abnormalities were identified. Aortic valve was trileaflet, trace aortic insufficiency. No aortic stenosis noted with aortic valve area of 3.27 cm2 via the continuity equation. No PFO noted by both PATIENT'S NAME: VARSHA [facility] AGE: 55 Y [address] ROOM: [address] [address] LOCATION: GICU ADMIT DATE: 09/25/2016 OR/Procedure Report DISCHARGE DATE: FAMILY PHYSICIAN: Harish Novak MD ATTENDING PHYSICIAN: Hector Lundy agitated saline study and Doppler analysis. The patient has trace tricuspid insufficiency and normal tricuspid valve anulus. The patient has moderate dysfunction of his right ventricle, however, there is poor echocardiographic windows of the right ventricle apex and free wall. The patient does have left ventricular posterior wall end systole measuring 2.31 cm and left ventricular septum of 2.28 cm at the greatest diameter. The patient by definition has severe concentric left ventricular hypertrophy; however, also has exaggerated septal area of hypertrophy. There is ascending aorta diameter of 3.3 cm. There is grade 3 atheromatous disease at the ascending aorta and grade 2 atheromas disease at the descending aorta. Of note, the left ventricular outflow tract gradient max was 25 mmHg with a dagger-shaped continuous wave with spectral Doppler noted. Of note, the patient did have a blood pressure of approximately 110/50 with a heart rate of 38 when these were measured. Post bypass views do illustrate left ventricle was hyperdynamic with left ventricular EF of 70%. Right ventricle with no dysfunction. Aortic valve unchanged with trace tricuspid insufficiency. Mitral regurgitation remains unchanged. There was no systolic anterior motion of the anterior mitral valve leaflet. There is trace tricuspid insufficiency. Pulmonary valve is not well noted. There appears to be no ventricular septal defect or atrial septal defect. Left ventricular outflow tract max gradient was 13 mmHg. Of note, there was no systolic anterior motion of the anterior leaflet of the mitral valve. JUSTINE REDMOND MD RRS/modl /[id number] d: 09/25/166 t: 09/28/16 1714, OPERATIVE SUMMARY
--- NOTE | ~2016-09-22 | OR ---
PATIENT'S NAME: VARSHA PERDUE [facility] AGE: 55 Y [address] ROOM: [address] [address] LOCATION: GICU ADMIT DATE: 09/25/2016 OR/Procedure Report DISCHARGE DATE: FAMILY PHYSICIAN: Harish Novak MD ATTENDING PHYSICIAN: Hector Lundy SURGEON: Devin Redmond MD [employer] SPECIALIST: Keila Garber RN. DATE OF PROCEDURE: 09/25/2016 PROCEDURES PERFORMED: 1. Right radial 20-gauge arterial line placement. 2. Right internal jugular 9-Greenlandic sheath placement. PREOPERATIVE DIAGNOSES: 1. Hypertrophic obstructive cardiomyopathy. 2. Hypertension. 3. Hyperlipidemia. 4. Obstructive sleep apnea. POSTOPERATIVE DIAGNOSES: 1. Hypertrophic obstructive cardiomyopathy. 2. Hypertension. 3. Hyperlipidemia. 4. Obstructive sleep apnea. COMPLICATIONS: None noted. ESTIMATED BLOOD LOSS: Less than 5 mL. CONSENT: Informed consent was obtained preoperatively including discussion of risks, benefits, and alternatives. The patient stated his understanding of the above procedures, risks, benefits, and alternatives and agreed for me to proceed. DESCRIPTION OF PROCEDURE: In the Operating Room, prior to the induction of anesthesia, the patient was placed in a supine position with the right wrist supinated. Sterile prep with ChloraPrep utilizing sterile technique and 1% lidocaine to subcutaneous tissues with a 27-gauge needle of the right wrist. Utilizing sterile technique, a 20-gauge Arrow catheter was used to cannulate the right radial artery under real-time ultrasound guidance and pulsatile blood flow. Over a wire, 20-gauge Arrow catheter was inserted without difficulty. Wire and needle were removed intact. Catheter was de-aired. This was flushed with saline solution. Sterile occlusive Tegaderm dressing was applied. Good correlation with non-invasive blood pressure monitoring. PATIENT'S NAME: VARSHA PERDUE [facility] AGE: 55 Y [address] ROOM: [address] [address] LOCATION: GICU ADMIT DATE: 09/25/2016 OR/Procedure Report DISCHARGE DATE: FAMILY PHYSICIAN: Harish Novak MD ATTENDING PHYSICIAN: Hector Lundy After induction of anesthesia, the patient was placed in Trendelenburg position with ultrasound for confirmation of right internal jugular venous anatomy. Utilizing a sterile prep with ChloraPrep to right neck, sterile full- body drape, sterile gown, and sterile gloves were used. Surgical masks and caps were worn at all times. Utilizing a 16-gauge needle, my anterior approach to the right internal jugular vein was scanned in the first attempt without difficulty and non- pulsatile blood flow. Dark blood was aspirated. Over a wire, a 9-Greenlandic sheath was inserted to 10 cm without difficulty. Wire and needle were removed intact. Catheter was sutured in place. A sterile occlusive Tegaderm dressing was applied. Stat portable chest x-ray will be ordered postoperatively. MD HECTOR LEAHY/modl /[id number] d: 09/25/162119 t: 09/28/16 1716, OPERATIVE SUMMARY
--- NOTE | ~2016-09-22 | ECHO ---
Transthoracic Echocardiography Report (TTE) Demographics Patient Name VARSHA PERDUE Date of Study 09/29/2016 L Patient Number [id number] Visit Number [id number] Date of 1960 Room Number G6303 Gender Male Number Age 55 year(s) Referring Narayan Carvajal Lay Brother Carin Espinoza, Physician RT,RVT,RDCS Physician Interpreting Narayan Carvajal Fire Lieutenant Marine Physician Supervising Ordering Narayan Carvajal MD/MLP Physician MD Nurse Stress Coconut J[employer] Roller Conclusions Summary The estimated left ventricular ejection fraction is 50%.Moderate to severe concentric left ventricular hypertrophy with normal WM.Small LV cavity. Aortic gradient is 1.2 m/sec. The aortic root appears mildly dilated. The maximum diameter measures 4.0 cm. Trivial tricuspid regurgitation by color Doppler. Procedure Type of Study TTE procedure:2D Echocardiogram, M-Mode, Doppler , Color Doppler. Procedure Date Date: 09/29/2016 Start: 09:18 AM Study Location: Inpatient Portable Technical Quality: Fair Indications:Arrhythmia. Additional Indications:Post septal myectomy X 4 days. Appropriate Use Criteria: 7 Patient Status: Routine HR: 121 bpm BP: 109/82 mmHg Allergies - No known allergies. M-Mode/2D Measurements LV Diastolic Dimension: 3.41 cm LV Systolic Dimension: 2.87 cm LV Septum Diastolic: 1.88 cm LV Septum Systolic: 1.93 cm LV PW Diastolic: 1.88 cm LV PW Systolic: 2.06 cm Cardiac Output: 6.03 l/min AO Root Dimension: 4 cm LA Dimension: 4.8 cm EF Estimated: 50 % MV EPSS: 0.4 cm LVOT: 1.9 cm LVOT VTI: 17.6 cm LV Stroke volume: 49.88 ml Doppler Measurements AV Peak Velocity: 1.19 m/s MV Peak E-Wave: 0.81 m/s AV Peak Gradient: 5.66 mmHg AV Mean Gradient: 3 mmHg LVOT Peak Velocity: 1.18 m/s PV Peak Velocity: 0.51 m/s PV Peak Gradient: 1.05 mmHg Findings Left Ventricle Moderate to severe concentric left ventricular hypertrophy with normal EF and WM.Small LV cavity.. Right Ventricle Normal right ventricle structure and function. Left Atrium Moderate dilatation of LA. Right Atrium Normal right atrial size. Mitral Valve Normal mitral valve structure and function. Aortic Valve Normal aortic valve structure and function.Peak velocity is 1.2 m/sec. Tricuspid Valve Trivial tricuspid regurgitation by color Doppler. Pulmonic Valve Normal pulmonic valve structure and function. Pericardial Effusion No evidence of pericardial effusion. Miscellaneous The aortic root appears mildly dilated. The maximum diameter measures 4.0 cm. Pleural Effusion No evidence of pleural effusion. Contractility Score LV regional wall motion:(0-Non visualized 1-Normal 2-Hypokinesis 3-Akinesis 4-Dyskinesis 5-Aneurysm) Signature dtt: Alena Busch dtd: 09/29/16 0918 Physician Self Edit
--- NOTE | ~2016-09-22 | OR ---
PATIENT'S NAME: VARSHA KERNS [facility] AGE: 55 Y [address] ROOM: [address] [address] LOCATION: GPCU ADMIT DATE: 09/25/2016 OR/Procedure Report DISCHARGE DATE: FAMILY PHYSICIAN: Harish Novak MD ATTENDING PHYSICIAN: Hector Galaviz SURGEON: Hector Galaviz DO SPA MANAGER: DATE OF PROCEDURE: 09/26/2016 PREOPERATIVE DIAGNOSIS: Hypertrophic cardiomyopathy. POSTOPERATIVE DIAGNOSIS: Hypertrophic cardiomyopathy. PROCEDURE: Septal myomectomy. BRIEF HISTORY: Mr. Kerns is a 55-year-old white male with the above- noted diagnosis. He has been brought to the operative suite today after informed consent was obtained for septal myomectomy and a diagnosis of hypertrophic cardiomyopathy. Preoperatively, he had been seen by Dr. Busch and had an extremely high gradient across the left ventricular outflow tract, greater than 95, and had multiple syncopal episodes and was recommended for septal myectomy. DESCRIPTION OF PROCEDURE: He was brought to the operative suite today after informed consent was obtained for this procedure. He was sterilely prepped and draped in the usual fashion for a median sternotomy. A sternal incision was made. The sternum was divided in the midline. Heparin was given. The marrow and sternal edges were made hemostatic by electrocautery and OSTENE and a sternal retractor was placed. Pericardium was opened. Pericardial wall was created and cannulation sutures were placed in the ascending aorta, right atrium, and right superior pulmonary vein for bypass, cardioplegia, and vent cannulas. The patient was cannulated and connected to bypass pump without difficulty. ACT was adequate. Cardiopulmonary bypass was initiated, and a crossclamp was applied. Antegrade and retrograde cardioplegia along with topical cold saline used for cardiac arrest. The heart arrested nicely. Once our plegia was switched to retrograde, we opened the ascending aorta noting good flow from the coronary sinus from the retrograde cardioplegia and also noting a grossly normal trileaflet aortic valve. 2-0 silk retraction sutures were used to retract the aorta and a retractor was used to retract the right coronary leaflet and the septal hypertrophy was easily identified. Utilizing the 11 blade, septal myectomy was performed without difficulty. One dose of retrograde cardioplegia was given during this time. We then removed the 2-0 silk retraction sutures, closed the ascending aorta with a running 3-0 pledgeted Prolene in a double-layer fashion. Deairing maneuvers were undertaken and the crossclamp was removed. No intracardiac air was PATIENT'S NAME: VARSHA KERNS [facility] AGE: 55 Y [address] ROOM: [place] [address] LOCATION: GPCU ADMIT DATE: 09/25/2016 OR/Procedure Report DISCHARGE DATE: FAMILY PHYSICIAN: Harish Novak MD ATTENDING PHYSICIAN: Hector Galaviz appreciated, and the patient was weaned from the cardiopulmonary bypass without difficulty. During this time period, warm blood was given in a retrograde fashion and we removed the left ventricular vent from the right superior pulmonary vein. At this time, the outflow tract was inspected via ANTONELLA. Gradient was less than 12 and no systolic anterior motion of the mitral valve was appreciated, and no aortic insufficiency was noted. The patient was then decannulated. The right atrial cannula was removed. Appropriate volume returned from the pump to the patient. The ascending aortic cannula and root vent were removed and protamine was given. Two atrial and one ventricular temporary pacemaking wires were placed. Atrial pacing was initiated at 80 for his sinus bradycardia secondary to heavily preoperative load of beta blockers and we had placed 3 chest tubes, 1 in the right pleural space, 1 in the posterior pericardial space, and 1 in the anterior mediastinal space. Sternum was then approximated with sternal cable system. Soft tissues were closed in a layered fashion. All sponge, instrument, and needle counts were correct. The patient was transferred to the intensive care unit in stable condition. HECTOR GALAVIZ DO MCB/modl /[id number] d: 09/27/16 0012 t: 09/27/16 1045, OPERATIVE SUMMARY
--- NOTE | ~2016-09-22 | PUL ---
PATIENT'S NAME: VARSHA PERDUE [facility] AGE: 55 Y [address] ROOM: [address] [address] LOCATION: GPCU ADMIT DATE: 09/25/2016 Pulmonary DISCHARGE DATE: 10/02/2016 FAMILY PHYSICIAN: Harish Novak MD ATTENDING PHYSICIAN: Hector Lundy NAME OF PROCEDURE: Overnight Pulse Oximetry DATE OF PROCEDURE: October 01 to October 02, 2016 REASON FOR EXAM: Nocturnal hypoxemia RESULTS: The test was performed on room air. The recording time was 9 hours, 23 minutes and 56 seconds, with a total valid sampling time of 9 hours, 11 minutes and 52 seconds. The highest pulse was 78, lowest pulse was 57, with a mean pulse of 66. The highest SpO2 was 94%, lowest SpO2 was 84%, with a mean SpO2 of 89.4%. The patient spent 1 hour, 46 minutes and 28 seconds with SpO2 less than 89%, representing 19.3% of the total sleep time. The desaturation event index was normal 3.5. PHYSICIAN INTERPRETATION: The patient has evidence of significant nocturnal hypoxia and would qualify for supplemental oxygen as per Medicare criteria. MD YAMILET LOVE/leroy /[id number] dtt: 10/03/16 1615 , NUSRAT BENÍTEZ dtd: 10/03/16 1528
[~2016-09-22 12:15] MED LIST: CALAMINE TOP; CLARITIN10 MG PO; COLACE100 MG PO; COUMADIN **IA2.5 MG PO; FISH OIL 500 M1 EAC1 PO; HYDROCODON-ACE1 EAC4 PO; LIPITOR40 MG PO; LOPRESSOR25 MG PO; MULTAQ400 MG PO; NORVASC5 MG PO; PEPTO BISMOL LIQ1 ML PO; PRILOSEC20 MG PO; ROBITUSSIN DM120 ML PO; TOPROL XL100 MG PO; TRIPLE ANTIBIO1 EACH TOP; TUMS REGULAR ST1 TAB PO; TYLENOL325 MG PO; ZETIA10 MG PO; ZYLOPRIM100 MG PO
[2016-09-22 12:57] LABS: HEMOGLOBIN 15.2 g/dL (12.0-17.0); MCH 30.8 pg (27.0-34.0); MCHC 34.5 gm/dL (32.0-36.5); MCV 89.1 fl (83.0-98.0); MPV 10.6 fl (9.4-12.4); RBC 4.94 M/uL (4.00-6.00); WBC 7.8 K/uL (4.0-11.0)
[2016-09-22 13:01] LABS: BILIRUBIN URINE NEGATIVE (NEGATIVE); BLOOD URINE NEGATIVE /UL (NEGATIVE); COLOR URINE YELLOW (YELLOW); GLUCOSE URINE NEGATIVE (NEGATIVE); KETONE URINE NEGATIVE (NEGATIVE); LEUKOCYTES URINE NEGATIVE /UL (NEGATIVE); NITRITE URINE NEGATIVE (NEGATIVE); PROTEIN URINE 15 mg/dL (NEGATIVE); SPEC GRAVITY URINE 1.025 (1.003-1.035); TURBIDITY URINE CLEAR (CLEAR); UROBILINOGEN URINE 1 mg/dL (NORMAL)
[2016-09-22 13:08] LABS: INR - (THERAPEUTIC) 1.3 (0.9-1.1); PROTIME 13.4 SECONDS (9.6-11.1)
[2016-09-22 13:12] LABS: ALBUMIN 3.8 gm/dL (3.5-5.0); ANION GAP 11.4 (10.0-19.0); CALCIUM 8.7 mg/dL (8.5-10.5); CREATININE 1.3 mg/dL (0.6-1.3); POTASSIUM 4.4 mMol/L (3.7-5.1); TOTAL PROTEIN 7.6 g/dL (6.0-8.4)
[2016-09-22 13:15] LABS: TOTAL BILIRUBIN 0.7 mg/dL (0.0-1.5)
[2016-09-22 13:30] LABS: BACTERIA URINE RARE (NEGATIVE); EPITHELIAL URINE RARE #/HPF (NEGATIVE); MUCUS URINE 2+ (NEGATIVE); RBC URINE NEGATIVE #/HPF (NEGATIVE); WBC URINE RARE #/HPF (NEGATIVE)
[2016-09-22 14:53] LABS: BICARBONATE 24.6 mmol/L (18.0-23.0); PCO2 38 mmHg (35-45); PO2 70 mmHg (80-90)
[2016-09-25 09:53] LABS: HEMATOCRIT 35.2 % (37.0-53.0); HEMOGLOBIN 12.5 g/dL (12.0-17.0); MCH 31.3 pg (27.0-34.0); MCHC 35.5 gm/dL (32.0-36.5); MPV 10.4 fl (9.4-12.4); RDW-CV 12.9 % (11.9-14.6); WBC 14.7 K/uL (4.0-11.0)
[2016-09-25 10:04] LABS: INR - (THERAPEUTIC) 1.6 (0.9-1.1); PROTIME 17.2 SECONDS (9.6-11.1)
[2016-09-25 10:07] LABS: PLATELET COUNT 183 K/uL (150-450); PTT 31 SECONDS (25-32)
[2016-09-25 10:12] LABS: BICARBONATE 24.8 mmol/L (18.0-23.0); PCO2 48 mmHg (35-45); PO2 237 mmHg (80-90); POTASSIUM 3.5 mEq/L (3.7-5.1); SODIUM 141 mEq/L (135-145)
[2016-09-25 10:13] LABS: BICARBONATE 28.4 mmol/L (18.0-23.0); PCO2 47 mmHg (35-45); PO2 243 mmHg (80-90)
[2016-09-25 10:14] LABS: SODIUM 137 mEq/L (135-145)
[2016-09-25 10:15] LABS: BICARBONATE 23.4 mmol/L (18.0-23.0); PCO2 47 mmHg (35-45); PO2 136 mmHg (80-90); POTASSIUM 4.3 mEq/L (3.7-5.1); SODIUM 136 mEq/L (135-145)
[2016-09-25 10:27] LABS: BICARBONATE 26.2 mmol/L (18.0-23.0); PCO2 52 mmHg (35-45)
[2016-09-25 10:28] LABS: PO2 74 mmHg (80-90)
[2016-09-25 10:37] LABS: ALPHA ANGLE 70 degrees; CLOT FORMATION TIME 102 seconds; MAXIMUM CLOT FIRMNESS 56 mm; MAXIMUM LYSIS 0 %
[2016-09-25 10:37] LABS: BLOOD UREA NITROGEN 11 mg/dL (6-24); CHLORIDE 110 mMol/L (96-110); CO2 27 mMol/L (22-32); ESTIMATED GFR (MDRD EQUATION) > 60
[2016-09-25 10:38] LABS: ANION GAP 10.1 (10.0-19.0); CALCIUM 7.2 mg/dL (8.5-10.5); POTASSIUM 4.1 mMol/L (3.7-5.1); SODIUM 143 mMol/L (135-145)
[2016-09-25 10:38] LABS: ALPHA ANGLE 73 degrees (70-81); CLOTTING TIME 113 seconds (43-82); CLOTTING TIME 169 seconds; MAXIMUM CLOT FIRMNESS 61 mm (51-72)
--- NOTE | 2016-09-25 16:39 | NUR ---
Significant Event: Patient is A/Ox3, slow to wake. Follows all commands, no numbness or tingling. Denies REMY. A paced at 80. To titrate off cuff pressures. SBP cuff 90-140's. AL SBP 80-140's. Nitro at 10mcg/min, was as high as 100mcg/min. CVP 8-12. CI 1.8-3.1, CO 4-5. Dobutamine at 3mcg/kg/min. Extubated prior to coming to floor to 10L SM, titrated to 5L NC, spo2 95%. Lungs asculted clear-crackles at times. CT x3, no crepitus or fluctuations, C/D/I, total of 130ml of sanguinous drainage.Hypoactive bowel sounds, no bm. Tolerating clear liquids advance to cardiac/ADA as tolerates. 2000mlFR/day. Up to chair with 3 assist. Afebrile. 8/10 pain,gave 2 norco, helped to bring down pain level to tolerable. Denies N/V. IV insulin drip, accuchecks q1h Follow up:Continue to monitor /wean drips
[2016-09-25 18:47] LABS: BICARBONATE 25.4 mmol/L (18.0-23.0); PO2 83 mmHg (80-90)
[2016-09-25 18:48] LABS: PCO2 40 mmHg (35-45)
[2016-09-26 00:53] LABS: MAGNESIUM 1.6 mg/dL (1.3-2.6); POTASSIUM 3.9 mMol/L (3.7-5.1)
--- NOTE | 2016-09-26 04:33 | NUR ---
Significant Event: Patient A/O x3. Speech slow to respond at times. No c/o chest pain. Back to bed from chair with 2 assist. Continued on 5L NC. Does get SOB and have increased RR at times. VSS. Continues to nitro gtt and dobutamine gtt. HR paced at 80. Small amount of drainage present on chest tube dressing. Tubes milked x1- bloody drainage present in tubes. No crepitis or flucutations noted. Tolerating diet/fluids without difficulty. Maldonado with good UOP. No family or visitors this shift. Ectopy noted-Mg/K drawn and replaced according to post op CABG protocol. Will check again with AM labs. Heart hugger on. Follows sternal precautions. Follow up: Continue to monitor. Transfer to PCU when stable.
[2016-09-26 04:37] LABS: BICARBONATE 23.5 mmol/L (18.0-23.0); PCO2 33 mmHg (35-45); PO2 81 mmHg (80-90)
[2016-09-26 04:48] LABS: ANION GAP 14.1 (10.0-19.0); BLOOD UREA NITROGEN 12 mg/dL (6-24); CALCIUM 7.8 mg/dL (8.5-10.5); CHLORIDE 106 mMol/L (96-110); CO2 23 mMol/L (22-32); CREATININE 1.1 mg/dL (0.6-1.3); ESTIMATED GFR (MDRD EQUATION) > 60; POTASSIUM 4.1 mMol/L (3.7-5.1); SODIUM 139 mMol/L (135-145)
[2016-09-26 04:53] LABS: HEMATOCRIT 37.6 % (37.0-53.0); HEMOGLOBIN 13.4 g/dL (12.0-17.0); MCHC 35.6 gm/dL (32.0-36.5); MPV 10.6 fl (9.4-12.4); RBC 4.32 M/uL (4.00-6.00); RDW-CV 12.8 % (11.9-14.6); WBC 11.8 K/uL (4.0-11.0)
[2016-09-26 10:35] LABS: MAGNESIUM 2.1 mg/dL (1.3-2.6); POTASSIUM 3.8 mMol/L (3.7-5.1)
--- NOTE | 2016-09-26 15:44 | NUR ---
Significant Event: Patient is A/Ox3 follows all commands. Afebrile. Pacer off this am. Nitro at 15mcg/min to keep sbp 90-140. Dobutamine off at 1141. Since about noon HR has been low 60's, sleeping saw a low of 59. Afebrile. On 4L NC takes a while to recover after activity, increase to 5L for a short time then back to 4L. Lungs ascultated clear/diminished in bases. Patient states doesnt feel as SOB as did earlier in am. Gave 20meq kcl via iv and replaced 1gm mg. Hypoactive bowel sounds, no bm. Tolerateing ADA diet, poor appetite. 2000FR/day. Maldonado patent with yellow UOP. CTx3, no crepitus or fluctuations noted, total of 350ml serosang drainage. No N/V. PRN NOrco 2 tabs given x1, has denied pain since.\ Follow up:Transferred to PCU.
--- NOTE | 2016-09-26 20:09 | NUR ---
Significant Event: A/O X 3. COOPERATIVE WITH CARES. S/P SEPTAL MYECTOMY. CT X 3 INTACT TO SUCTION. MIDSTERNAL DRESSING C/D/I. GIVEN NORCO FOR PAIN CONTROL. FAIR APPETITE. ART LINE DRESSING TO RT. ARM, C/D/I. Follow up: CONT. TO MONITER POST SURGICAL INTERVENTION
--- NOTE | 2016-09-27 04:43 | NUR ---
Significant Event: Patient is alert/oriented x3. Patient's heart rate increased from 80's to 130's (sinus tachycardia) around 1999. Dr. Lundy notified and he ordered to give 12.5 mg PO Lopressor x1. No changes noted and patient actually went into atrial fibrillation with RVR (does have a history of this) with HR's up to 150's. Dr. Lundy notified and ordered 5 mg IV Cardizem bolus and to start Cardizem drip per protocol. Nitroglycerin was turned off at 2155. Cardizem drip is currently infusing at 10 mg/hr with HR 80-110's, still in atrial fibrillation. Other vital signs have been stable. On 5-6L O2 per NC, patient does breathe very shallow due to pleural/incision pain. Chest tubes x3 to one pleurivac with 160 mL sanguinous drainage. Sternal incision covered with mepilex dressing. Pacer wires taped and capped. Patient given [place] x1 last night, with relief. Continues on insulin drip, currently q.1 hour accuchecks (infusing at 4 units/hr). Maldonado in place with 1000 mL UOP. Follow up: Continue to monitor per plan of care.
--- NOTE | 2016-09-27 11:18 | NUR ---
CONSULT RECEIVED FOR CARDIAC DIET ED. PT RESIDES IN LONG-TERM. DIET ED BEING DEFERRED AT THIS TIME D/T RESIDING IN LONG-TERM.
--- NOTE | 2016-09-27 15:02 | NUR ---
Introduced self and role of care management to pt. He states he lives in an apartment with another kenton who smokes but the plan when he leaves here is to go stay at [facility]. I asked who Joelle was and that is the gal at [facility] who is in charge of all this. I then called [phone] and Joelle was not in but spoke with BJ to clarence get an idea what this all was and she was not really wanting to give much information. She stated it is a resident place and he will have 24/ care provided in [place]. I asked about meds an they will have pharmacy set them up and they will give them to him. I asked about sternal precautions and a nice chair or bed and she states it will all be taken care of. I asked if someone will be present during the discharge process and she stated Joelle and that his sister is aware of all this. Will continue to follow and assist as needed.
--- NOTE | 2016-09-27 19:17 | NUR ---
Significant Event: A/Ox3. Forgetful at times. SBP- 120-130s. P-55-110s. Afib. Afebrile. 6L NC with saturations in low 90s. Chest tube changed to Nish drain had 50ml of serosanginous drainage out. Sternum CLIPPER MACHINE. Patient follows sternal precautions appropriatley. Maldonado discontinued, post void since. Insulin and cardizem gtts both d/c'd. Patient is up with a SBA/1A/walker. Accuchecks AC/HS.
[2016-09-28 03:53] LABS: INR - (THERAPEUTIC) 1.2 (0.9-1.1); PROTIME 12.7 SECONDS (9.6-11.1)
--- NOTE | 2016-09-28 05:04 | NUR ---
Significant Event: Patient A/O X 3, COOPERATIVE WITH CARES. DENIES PAIN THROUGH OUT SHIFT. STERNUM CHOPPED STRAND OPERATOR APPROXIMATED. HIEU=70ML OUT THIS SHIFT. R)IJ DC'D. PATIENT RESTED WELL DURING NIGHT. Follow up: CONTINUE TO MONITOR PER PLAN OF CARE.
--- NOTE | 2016-09-28 17:30 | NUR ---
PT IS WEANING DOWN ON O2 THROUGHOUT THE DAY. 0700 ON 6 L, END OF SHIFT WEANED DOWN TO 1 L. PT DID HAVE 1 EPISODE OF CHEST PAIN AND SOB DURING HIS SHOWER. HE WAS GASPING AND MOTTLED. PT WAS TRANSFERRED TO THE BED ON 6 L OF O2 AND HIS EPISODE OF SOB WAS RELIEVED WITH REST. NO OTHER C/O SOB DURING THE SHIFT. PT WAS EXTREMELY DIAPHORETIC THIS MORNING BUT HAS NOT HAD ISSUES SINCE HIS SHOWER. HIEU TUBE WAS D/C BY DR GALAVIZ AT 1725 AND 30 ML OF DRAINAGE WAS MEASURED FOR OUTPUT. NO COMPLICATIONS WITH STERNAL INCISION. PT CONVERTED TO A FIB AT 1545. MULTAQ GIVEN EARLY FOR ARRHYTHMIA. PT HAD NO S/S DURING A FIB. VITAL SIGNS STABLE THROUGHOUT DAY.
--- NOTE | 2016-09-28 17:52 | NUR ---
NURSING NOTE: I HAVE READ AND AGREE WITH THE ASSESSMENT AND DOCUMENTATION DONE OF THIS PATIENT FROM 6A-6P BY STUDENT NURSE JEFF WATKINS. RUTH ANN PAREKH
[2016-09-29 04:18] LABS: INR - (THERAPEUTIC) 1.45 (0.92-1.07); PROTIME 15.3 SECONDS (9.8-11.4)
[2016-09-29 04:27] LABS: ALBUMIN 2.7 gm/dL (3.5-5.0); ANION GAP 14.1 (10.0-19.0); BLOOD UREA NITROGEN 23 mg/dL (6-24); CALCIUM 8.4 mg/dL (8.5-10.5); CHLORIDE 103 mMol/L (96-110); CO2 26 mMol/L (22-32); CREATININE 1.2 mg/dL (0.6-1.3); ESTIMATED GFR (MDRD EQUATION) > 60; MAGNESIUM 2.3 mg/dL (1.3-2.6); PHOSPHORUS 3.2 mg/dL (2.5-4.9); POTASSIUM 4.1 mMol/L (3.7-5.1); SODIUM 139 mMol/L (135-145)
--- NOTE | 2016-09-29 04:38 | NUR ---
A/O. HR 100-120 AFIB THROUGHOUT NIGHT. WILL GO IN/OUT OF AFIB. SBP 100-130s. AFEBRILE. 2L NC 92-93%. DENIES PAIN. 1A UP TO CHAIR. VOIDS PER URINAL. NO BM. STERNAL INCISON OVER THE HORIZON TARGETING SUPERVISOR. THROAIC SITE GAUZE SILK TAPE C/D/I. STERNAL PERCAUTIONS IN PLACE.
--- NOTE | 2016-09-29 10:22 | NUR ---
A - PT SCREENED D/T LOS. 1+ EDEMA. DECREASED APPETITE. LABS: ACCUCHECK WNL-REAS, GLU 112, ALB 2.7, WBC 11.8. MEDS: SSI, BUMEX, PEPCID, KCL, D5LR, BOWEL/NAUSEA. DIET: CARDIAC, 2000 ML FLUID. INTAKE: REF-100%, AVG ~53% HT: 66" WT: 194# BMI: 30.8. EST NEEDS: 2613-0237 KCAL (15-20 KCAL/KG), 88-106 G PRO (1-1.2 G/KG), 2000 ML FLUID (PER MD). D - INADEQUATE NUTRIENT INTAKE AT TIMES R/T DECREASED APPETITE AEB INTAKE RECORD. I - GOAL FOR INTAKE 50-100% FOR DURATION OF STAY. WILL ADD ENSURE PUDDING @ L&D. M/E - WILL MONITOR INTAKE. F/U IN 4-5 DAYS.
--- NOTE | 2016-09-29 12:44 | NUR ---
Received a call from Arabella Brizuela APRN requesting I check with the place Yovany is going to on discharge to see if they can pick him up if discharge this weekend. I called [facility] at [phone] and spoke with Jose. She stated that they would have someone who could pick him up on Sunday. They would need to call [phone] which is the secondary art teacher phone and that person would come get him. I updated Arabella Brizuela.
--- NOTE | 2016-09-29 17:12 | NUR ---
A/O x3. VSS on 2L/NC. A fib rates 100s-140s. MD called and amiodarone drip started. Pt then converted to SR and remained SR with PACs. Stand by assist with gaitbelt. 1 formed BM this am. Does well with sternal precautions. Heparin drip continues in L AC IV, next HP at 1700. Amiodarone drip continues in L wrist IV. Pt is diaphoretic. Sternal incision open to air. Old CT site covered with gauze and is clean, dry, and intact. Pt complained of pain this am and 2 [place] were given with relief noted. No additional complaints of pain.
[2016-09-30 02:50] LABS: ALBUMIN 2.8 gm/dL (3.5-5.0); ANION GAP 13.8 (10.0-19.0); CALCIUM 8.5 mg/dL (8.5-10.5); CREATININE 1.3 mg/dL (0.6-1.3); PHOSPHORUS 3.8 mg/dL (2.5-4.9); POTASSIUM 3.8 mMol/L (3.7-5.1)
[2016-09-30 02:53] LABS: INR - (THERAPEUTIC) 1.66 (0.92-1.07); PROTIME 17.5 SECONDS (9.8-11.4)
--- NOTE | 2016-09-30 03:52 | NUR ---
NURSE IN WITH PATIENT DOING ASSESSMENT. PATIENT ALERT STATING "I SLEPT GREAT BETTER THAN I HAVE FOR A WHILE." AT 0248 NOTIFIED OF 4 BEAT V-TACH. AT 0250 PATIENT UNRESPONSIVE. V-TACH ON MONITOR. AICD DELIVERED SHOCK. PATIENT AWOKE DISORIENTED AND DIAPHORETIC. CHARGE NURSE NOTIFED AND CRASH CART BOUGHT INTO ROOM. DR Damon NOTIFED. LABS ORDERED. AMIODARONE DRIP STARTED PER 24HR PROTOCOL. COPY OF EVENT PLACED ON CHART. VITAL SIGNS STABLE. PATIENT ALERT AND ORIENTED.
--- NOTE | 2016-09-30 05:24 | NUR ---
A/O. HR 50-60s. REMAINS IN NSR. SBP 130-160s. 1L NC. AFEBRILE. NORCO 2TAB x1 FOR INCISION PAIN. STERNAL INCISION KAYLA. CT SITE DRESSING C/D/I. AMIODARONE GTT PRE PROTOCOL. HERPARIN AT 1200 UNITS/HR NEXT PTTHP AT 0930. 1A UP TO CHAIR. VOIDS PER URINAL. NO BM.
--- NOTE | 2016-09-30 16:10 | NUR ---
A/O x3. VSS on 1L. One assist to bathroom. At 0800 went into a. fib. Amio gtt restarted at 1110. Pt back into SR at 1150. No BM's today. Pt complained of nausea and abdominal bloating this afternoon. Abdomen distended on palpation, milk of mag given. Pt is very diaphoretic. Adequate UOP. Pt complained of incision pain this afternoon and [place] was given at 1325 with relief noted. Sternal incision OFFSET ASSISTANT PRESS OPERATOR. Old CT site healing, dressing changed, and is c/d/i. Amio gtt running in L AC IV. Heparin running in R wrist IV, next PTTHP due at 2200.
[2016-10-01 05:27] LABS: INR - (THERAPEUTIC) 2.17 (0.92-1.07)
--- NOTE | 2016-10-01 05:38 | NUR ---
SIGNIFICANT EVENT: A/O X 3. WAS ON RA AT START OF SHIFT BUT DID REQUIRE 1.5L DURING THE NIGHT TO KEEP OXYGEN LEVELS ABOVE 90%. HAS HAD NO C/O PAIN. SLEPT WELL MOST OF THE SHIFT. AMIODARONE DRIP CONTINUES AT 0.5MG/MIN AND HEPARIN DRIP IS RUNNING AT 1400UNITS/HR WITH THE NEXT PTTHP DUE AT 1130.
--- NOTE | 2016-10-01 16:45 | NUR ---
A/O x3. VSS on RA. Stand by assist. At 1509 went back into a. fib. Amio gtt restarted at 1640. 2 BMs today. 1 complaint of pain at 1420, [place] x2 was given with relief noted. Voiding well with adequate UOP. Sternal incision TRICK RODEO RIDER. Old CT site healing, dressing changed, and is c/d/i. Amio gtt running in L AC IV. Overnight trend ox tonight. NPO after midnight for possible cardioversion.
--- NOTE | 2016-10-02 04:42 | NUR ---
Significant event: A/O x 3. Up with minimal assist just to help push IV pole. Converted back into NSR at 2106 last noc. Amiodarone drip running in left AC IV. In the process of having an overnight trend-ox done sats have stayed 88-91% on RA. Has otherwise no c/o pain throughout this shift.
[2016-10-02 04:47] LABS: PROTIME 28.1 SECONDS (9.8-11.4)
[2016-10-02 04:49] LABS: INR - (THERAPEUTIC) 2.65 (0.92-1.07)
[2016-10-02] MEDS ORDERED: ASPIRIN LO-DOSE81 MG PO (09:34)
[2016-10-02] MEDS ORDERED: LOPRESSOR25 MG PO (09:39)
[2016-10-02] MEDS ORDERED: POTASSIUM CHLO10 MEQ PO (09:41)
[2016-10-02] MEDS ORDERED: NORCO 5-325 TA1 EACH PO (09:46)
[2016-10-02] MEDS ORDERED: CORDARONE,PACE200 MG PO (09:50)
[2016-10-02] MEDS ORDERED: BUMEX1 MG PO (09:51)
[2016-10-02 09:58] LABS: MAGNESIUM 2.4 mg/dL (1.3-2.6); POTASSIUM 4.3 mMol/L (3.7-5.1)
--- NOTE | 2016-10-02 15:41 | NUR ---
PATIENT DISMISSED TO [facility] W/ CAREGIVER PER PRIVATE AUTO. PATIENT TRANSFERED FROM PCU TO DR PENNINGTON'S OFFICE FOR ZIOPATCH MONITOR. RN REVIEWED DISMISSAL INSTRUCTIONS AND MEDICATIONS WITH PATIENT AND CAREGIVER. ALSO REVIEWED STERNAL PRECAUTIONS AND CARDIOTHORACIC SURGERY CARE INSTRUCTIONS, PATIENT AND CAREGIVER VERBALIZED UNDERSTANDING.
[2017-01-04] MEDS ORDERED: LIPITOR40 MG PO (16:49)
[2017-01-04] MEDS ORDERED: LOPRESSOR25 MG PO (16:50)
[2017-01-04] MEDS ORDERED: CLARITIN10 MG PO (16:50)
[2017-01-04] MEDS ORDERED: NORVASC5 MG PO (16:51)
== END 2016-10-02 12:15 | disposition disaster alternative care site (69) | DRG 229 ==
LOC: GRAD 12:15 → GPCU 09-25 05:14 → GICU 09-25 05:14 → EDSTATUS 09-25 12:00 → GPCU 09-26 15:24
PROVIDERS: ADMIT Thoracic Surgery (Cardiothoracic Vascular Surgery)
DX: I42.1 Obstructive hypertrophic cardiomyopathy (principal); I27.2 Other secondary pulmonary hypertension; I48.2 Chronic atrial fibrillation; Z79.01 Long term (current) use of anticoagulants; I25.10 Atherosclerotic heart disease of native coronary artery without angina pectoris; I25.2 Old myocardial infarction; I34.0 Nonrheumatic mitral (valve) insufficiency; Z90.49 Acquired absence of other specified parts of digestive tract; K21.9 Gastro-esophageal reflux disease without esophagitis; M10.9 Gout, unspecified; E78.5 Hyperlipidemia, unspecified; F79 Unspecified intellectual disabilities; Z79.891 Long term (current) use of opiate analgesic; G47.33 Obstructive sleep apnea (adult) (pediatric)
CPT/HCPCS: C1769; J0282; J0690; J1250; J1644; J2150; J2250; J2405; J2720; J3475; J3480; J3490; J7040; J7050; J7060; J7121; P9045; P9047

== ENCOUNTER → 2016-10-16 | Outpatient (CLI) | payer MEDICARE, MEDICAID ==
[~2016-10-16] MED LIST changes: +ASPIRIN LO-DOSE81 MG PO; +BUMEX1 MG PO; +CORDARONE,PACE200 MG PO; +NORCO 5-325 TA1 EACH PO; +POTASSIUM CHLO10 MEQ PO
[2016-10-16 17:01] LABS: BASOPHIL # 0.1 K/uL (0.0-0.2); BASOPHIL % 0.8 %; EOSINOPHIL # 0.2 K/uL (0.0-0.5); EOSINOPHIL % 2.6 %; HEMATOCRIT 43.7 % (37.0-53.0); HEMOGLOBIN 14.5 g/dL (12.0-17.0); IMMATURE GRANULOCYTE # 0.1 K/uL (0.0-0.3); IMMATURE GRANULOCYTE % 0.6 %; LYMPHOCYTE # 2.1 K/uL (0.8-4.0); LYMPHOCYTE % 23.5 %; MCH 30.1 pg (27.0-34.0); MCHC 33.2 gm/dL (32.0-36.5); MCV 90.7 fl (83.0-98.0); MONOCYTE # 0.5 K/uL (0.0-1.0); MONOCYTE % 6.2 %; MPV 10.9 fl (9.4-12.4); NEUTROPHIL # (ANC) 5.8 K/uL (1.4-9.0); NEUTROPHIL % 66.3 %; NRBC % 0 /100WBC (0-0.00); RBC 4.82 M/uL (4.00-6.00); RDW-CV 12.9 % (11.9-14.6); WBC 8.7 K/uL (4.0-11.0)
[2016-10-16 17:03] LABS: PLATELET COUNT 385 K/uL (150-450)
[2016-10-16 17:27] LABS: ALBUMIN 3.3 gm/dL (3.5-5.0); ANION GAP 12.6 (10.0-19.0); CALCIUM 8.4 mg/dL (8.5-10.5); CREATININE 1.4 mg/dL (0.6-1.3); POTASSIUM 3.6 mMol/L (3.7-5.1); TOTAL BILIRUBIN 0.6 mg/dL (0.0-1.5); TOTAL PROTEIN 7.8 g/dL (6.0-8.4)
== END ==
LOC: LNHI 16:49
PROVIDERS: Nurse Practitioner Women's Health
DX: R53.83 Other fatigue (principal); I25.10 Atherosclerotic heart disease of native coronary artery without angina pectoris

== ENCOUNTER 2017-01-08 11:17 | Outpatient (CLI) | payer MEDICARE ==
[~2017-01-08] VITALS: Ht 177.8 cm; Wt 87.7 kg
--- NOTE | ~2017-01-08 | OR ---
PATIENT'S NAME: VARSHA PERDUE [facility] AGE: 56 Y [address] ROOM: [place] [address] LOCATION: GPCU ADMIT DATE: 01/08/2017 OR/Procedure Report DISCHARGE DATE: FAMILY PHYSICIAN: Harish Novak MD ATTENDING PHYSICIAN: Alena Busch SURGEON: Alena Busch MD THERAPEUTIC CONSULTANT: DATE OF PROCEDURE: 01/08/2017 PROCEDURE: Dual chamber ICD Placement. INDICATION: 1. IHSS. 2. Syncope. DESCRIPTION OF PROCEDURE: After obtaining an informed consent, the patient was brought to the Cardiac Catheterization Laboratory on an empty stomach and prepped and draped using standard sterile precautions. A 1% Xylocaine was used to obtain local anesthesia over the left subclavian site. Modified Seldinger technique was used to place 2 guidewires into the IVC. A 4-cm long incision was made. Using blunt dissection, a pocket was created for the pacemaker ICD device. A ventricular lead was placed next. This is a [employer] Kenner 4-Site G active fix dual coil 59 cm, model number 0295, serial number [id number]. This had intrinsic of R-wave of 11.4 mV. Pacing threshold was 0.6 V at a pulse width of 0.5 msec. Pacing impedance was 1180 ohms. Shock impedance was 4 ohms. Current is 5.1 mA. Next, an atrial lead was placed, which is [employer], model number 7741. It is [employer] MRI IS-1 bipositive fix 52-cm lead, serial number [id number]. This had a P wave of 2.3 mV. Threshold was 0.7 V at a pulse width of 0.5 msec. Impedance is 712 Ohms. Current is 1 mA. Both the leads were sewn to the underlying muscle and the device was attached, which is [employer] Inogen EL ICD DF4-DR, model number D142, serial number [id number]. This had lori parameters about DDDR. Rhythm IQ was off. LRL is 60 beats per minute. MTR is 130 beats per minute. MSR is 130 beats per minute. PAV delay is 110 msec to 210 msec. SARAH delay is 90 msec to 180 msec. AV search is on to 320 msec. RA sensitivity was left at 0.25 mV and RV at 0.6 mV. Output was 3.5 V in RA at 0.5 msec and same for the RV as well. Sensor was accelerometer. PVARP was at 240 msec to 320 msec. ATR mode switch on to 160 beats a minute. Atrial flutter response was off. VRR was off. Rate smoothing was off. The DFT testing revealed a charge time of 3.9 seconds. Energy delivered was 21 joules. Shock impedance was 46 ohms. Sensitivity was 0.6 mV. Triad induction method was shocked on T, result was successful. VT zone was set at 170 beats per minute and VF at 210 beats per minute. Duration of 2.5 and 1 second respectively. Detection enhancement was with rhythm ID. Therapy was 41 joules PATIENT'S NAME: VARSHA PERDUE [facility] AGE: 56 Y [address] ROOM: [place] [address] LOCATION: [facility] ADMIT DATE: 01/08/2017 OR/Procedure Report DISCHARGE DATE: FAMILY PHYSICIAN: Harish Novak MD ATTENDING PHYSICIAN: Alena Busch x8 and 41 joules x6. Lead polarity is initial. Shock vector is triad. The patient tolerated the procedure well and there were no complications noted. MD SRAVANI ATKINSON/oskar /[id number] d: 01/08/17 2246 t: 01/16/17 1223, OPERATIVE SUMMARY
--- NOTE | 2017-01-09 04:11 | NUR ---
Significant Event: A/O X 3, COOPERATIVE WITH CARES AND VERY PLEASANT. VSS, PACED AROUND 60, AFEBRILE. 02 MID 90'S ON RA. LEFT CHEST PACMEKER DRESSING C/D/I WITH NO COMPLICATIONS. ARM REMIAINS IN SLING AND PATIENT IS COOPERATIVE WITH PRECAUTIONS. HAS DENIED AND AND REQUESTED NO PAIN MEDS. MOST LIKELY DISCHARGE TODAY. Follow up:
--- NOTE | 2017-01-09 13:54 | NUR ---
Significant Event: PT A&x3. VSS, on room air. PT up ad wali in room. Denies pain. IV x2 dc'd. Dismissal instructions given to PT/mom. Ranexa samples sent home with PT. PT wheeled to front lobby and dismissed to home with mom. Follow up:
--- NOTE | 2017-01-09 13:56 | NUR ---
Significant Event: PT A&O x3. VSS, on room air. PT ambulates with SBA. Dressing intact (gauze/transparent)to L)subclavian pacemaker site, outer dressing removed by MD. PT denies pain. IV dc'd. Dismissal instructions/prescriptions given to PT and caregiver, voiced understanding. PT wheeled to front lobby and dismissed to home. Follow up:
== END 2017-01-09 11:30 | disposition disaster alternative care site (69) ==
LOC: GPOC 11:17 → GPCU 11:17 → GPOC 01-09 11:30 → GOPP 01-12 06:00
PROC: 02H73KZ Insertion of Defibrillator Lead into Left Atrium, Percutaneous Approach (ICD-10-PCS; principal; 2017-01-08)
PROC: 02HL3KZ Insertion of Defibrillator Lead into Left Ventricle, Percutaneous Approach (ICD-10-PCS; 2017-01-08)
DX: Z01.818 Encounter for other preprocedural examination (principal); I42.1 Obstructive hypertrophic cardiomyopathy; R55 Syncope and collapse
CPT/HCPCS: C1721; C1895; C1898; J0690; J2001; J2250; J3010; J7030